=== PATIENT | male | born 1995 | race Caucasian/White ===

== ENCOUNTER 2016-05-15 21:51 | Emergency (ER) | payer BC, MEDICAID ==
[2016-05-16 00:03] LABS: BASOPHILS 0.3 % (0.0-2.0); HEMATOCRIT 45.5 % (42.0-54.0); HEMOGLOBIN 15.7 g/dL (13.5-17.5); IMMATURE GRANULOCYTES 0.1 % (0-5); LYMPHOCYTES 36.7 % (15-50); MCH 28.7 pg (26.0-34.0); MCHC 34.5 g/dL (31.0-37.0); MCV 83.2 fL (80.0-100.0); MEAN PLATELET VOLUME 10.7 fL (7.4-10.4); MONOCYTES 9.7 % (2-11); NEUTROPHILS 50.2 % (40-80); RBC 5.47 10x6/uL (4.20-6.10); RDW 12.4 % (11.5-14.5); WBC 7.3 10x3/uL (4.8-10.8)
[2016-05-16 00:04] LABS: PLATELET COUNT 184 10x3/uL (130-400)
[2016-05-16 00:09] LABS: APPEARANCE CLEAR (CLEAR); BILIRUBIN NEGATIVE (NEGATIVE); COLOR YELLOW (YELLOW); GLUCOSE NEGATIVE (NEGATIVE); KETONE NEGATIVE (NEGATIVE); LEUKOCYTE ESTERASE NEGATIVE (NEGATIVE); NITRITE NEGATIVE (NEGATIVE); PROTEIN NEGATIVE (NEGATIVE); SPECIFIC GRAVITY 1.025 (1.005-1.020); UROBILINOGEN NORMAL (NORMAL)
[2016-05-16 00:20] LABS: UDS - AMPHET NEGATIVE QUAL (NEGATIVE); UDS - BARB NEGATIVE QUAL (NEGATIVE); UDS - BENZO NEGATIVE QUAL (NEGATIVE); UDS - COCAINE NEGATIVE QUAL (NEGATIVE); UDS - METH NEGATIVE QUAL (NEGATIVE); UDS - OPIATE NEGATIVE QUAL (NEGATIVE); UDS - PCP NEGATIVE QUAL (NEGATIVE); UDS - THC NEGATIVE QUAL (NEGATIVE)
[2016-05-16 00:35] LABS: ALBUMIN 4.6 g/dL (3.4-5.0); ALKALINE PHOSPHATASE 91 U/L (46-116); ALT (SGPT) 19 U/L (10-68); CALC OSMOLALITY 277 mosm/kg (275-300); CALCIUM 9.1 mg/dL (8.5-10.1); CARBON DIOXIDE 26.9 mmol/L (21.0-32.0); CHLORIDE - SERUM 104 mmol/L (98-107); CREATININE - SERUM 1.1 mg/dL (0.6-1.3); GLUCOSE 98 mg/dL (74-106); POTASSIUM - SERUM 3.6 mmol/L (3.5-5.1); PROTEIN - SERUM 7.6 g/dL (6.4-8.2); SODIUM 140 mmol/L (136-145); UREA NITROGEN 9 mg/dL (7-18); eGFR NON AFRICAN AMERICAN 90 mL/min (90-120)
== END 2016-05-16 04:10 | disposition home or self-care (01) ==
LOC: D.ER 21:51
PROVIDERS: Surgery
DX: R45.851 Suicidal ideations (principal); F41.9 Anxiety disorder, unspecified; F95.2 Tourette's disorder